=== PATIENT | male | born 1940 | race Caucasian/White ===

== ENCOUNTER 2023-10-16 10:36 | Emergency (ER) | payer MEDICARE | END 2023-10-16 11:10 | disposition home or self-care (01) | LOC: VM.ED 10:36 → SUPCPDRO 10:36 → VM.ED 11:10 | DX: S61.215A Laceration without foreign body of left ring finger without damage to nail, initial encounter (principal); Z79.82 Long term (current) use of aspirin; Z79.899 Other long term (current) drug therapy; W26.8XXA Contact with other sharp object(s), not elsewhere classified, initial encounter | CPT/HCPCS: 99282 ==